=== PATIENT | female | born 1985 | race American Indian/Alaskan Native ===

== ENCOUNTER 2016-12-31 22:58 | Emergency (ER) | payer MEDICARE ==
[2016-12-31 23:58] VITALS: BP 155/107
[2017-01-01 00:26] LABS: Basophils % (Auto) 2.4 % (0.0-1.8); Eosinophils % (Auto) 2.4 % (0.0-4.3); Hematocrit 28.8 % (30.3-42.9); Hemoglobin 9.6 gm/dl (10.1-14.3); Mean Corpuscular HGB Conc 33 % (30-34); Mean Corpuscular Volume 77 fl (79-97); Platelet Count 277 K/mm3 (140-440); Red Blood Count 3.73 M/mm3 (3.65-5.03); Red Cell Distribution Width 15.6 % (13.2-15.2); White Blood Count 5.8 K/mm3 (4.5-11.0)
[2017-01-01 00:36] LABS: Mean Corpuscular Hemoglobin 26 pg (28-32)
[2017-01-01 01:45] LABS: Bilirubin,Urine NEG (Negative); Blood,Urine LG (Negative); Ketones,Urine 80 mg/dL (Negative); Leukocyte Esterase,Urine TR (Negative); Mucus,Urine 3+ /HPF; Nitrite,Urine NEG (Negative); RBC,Urine > 182.0 /HPF (0.0-6.0)
--- NOTE | 2017-01-01 06:58 | ED Elopement Review ---
ED Pt Elopement review - Results review Lab results: Laboratory Tests 12/31/16 01/01/17 01/01/17 Unknown 00:04 00:04 WBC 5.8 RBC 3.73 Hgb 9.6 L Hct 28.8 L MCV 77 L MCH 26 L MCHC 33 RDW 15.6 H Plt Count 277 Lymph % (Auto) 30.7 [place] % (Auto) 6.0 Eos % (Auto) 2.4 Baso % (Auto) 2.4 H Lymph # 1.8 [place] # 0.3 Eos # 0.1 Baso # 0.1 Seg Neutrophils % 58.5 Seg Neutrophils # 3.4 HCG, Quant < 2 Urine Color Shannan Urine Turbidity Clear Urine pH 6.0 Ur Specific [place] 1.027 Urine Protein 100 mg/dl Urine Glucose (UA) Neg Urine Ketones 80 Urine Blood Lg Urine Nitrite Neg Urine Bilirubin Neg Urine Urobilinogen 4.0 Ur Leukocyte Esterase Tr Urine WBC (Auto) 11.0 H Urine RBC (Auto) > 182.0 U Epithel Cells (Auto) 4.0 Urine Mucus 3+ Blood Type Antibody Screen 01/01/17 00:10 WBC RBC Hgb Hct MCV MCH MCHC RDW Plt Count Lymph % (Auto) [place] % (Auto) Eos % (Auto) Baso % (Auto) Lymph # [place] # Eos # Baso # Seg Neutrophils % Seg Neutrophils # HCG, Quant Urine Color Urine Turbidity Urine pH Ur Specific [place] Urine Protein Urine Glucose (UA) Urine Ketones Urine Blood Urine Nitrite Urine Bilirubin Urine Urobilinogen Ur Leukocyte Esterase Urine WBC (Auto) Urine RBC (Auto) U Epithel Cells (Auto) Urine Mucus Blood Type O POSITIVE Antibody Screen Negative - Call Back decision Pt Call Back Decision: No action required
== END 2017-01-01 05:30 | disposition left against medical advice (07) ==
LOC: ED 22:58
DX: R10.2 Pelvic and perineal pain (principal); N93.8 Other specified abnormal uterine and vaginal bleeding; Z53.21 Procedure and treatment not carried out due to patient leaving prior to being seen by health care provider
CPT/HCPCS: 36415; 81001; 84702; 85025; 86850; 86900; 86901

== ENCOUNTER 2017-02-07 08:55 | Outpatient (CLI) | payer MEDICARE ==
[2017-02-07] MEDS ORDERED: NACL ONE (12:06)
--- NOTE | 2017-02-07 13:19 | Cat Scan Report ---
CT scan of abdomen and pelvis with IV contrast: History: Abdominal pain, ovarian cyst. Findings: Normal lung bases. No pleural or pericardial effusion. Normal liver spleen and pancreas. Tiny calculi in the gallbladder. No pericholecystic fluid. Normal adrenals. Exophytic 5 mm cyst left kidney. No calculi. No hydronephrosis. Normal bladder. There is a left adnexal cyst noted measuring 3 x 2 cm. No free intraperitoneal fluid or air. No evidence of adenopathy. Gaseous colon with moderate amount of stool in colon. No bowel distention. Normal appendix. No evidence of diverticulitis. Small umbilical hernia containing mesenteric fat. Impression: Left adnexal cyst which appears to be benign.
== END 2017-02-07 08:56 | disposition home or self-care (01) ==
LOC: CT 08:55
PROVIDERS: ATTEND Obstetrics & Gynecology
DX: N83.202 Unspecified ovarian cyst, left side (principal); K80.20 Calculus of gallbladder without cholecystitis without obstruction; N28.1 Cyst of kidney, acquired; K42.9 Umbilical hernia without obstruction or gangrene
CPT/HCPCS: 74177; Q9967

== ENCOUNTER 2018-04-02 07:53 | Outpatient (CLI) | payer MEDICARE ==
--- NOTE | 2018-04-02 09:23 | Ultrasound Report ---
ULTRASOUND PELVIC COMPLETE ULTRASOUND TRANSVAGINAL HISTORY: Dysfunctional uterine bleeding. COMPARISON: CT abdomen pelvis with contrast dated 02/07/17. TECHNIQUE: Transabdominal and transvaginal ultrasound with color doppler interrogation. FINDINGS: Uterus: The uterus is anteverted and measures 9 x 4 x 5 cm. No uterine mass is identified. Normal cervix. Endometrium: 5 mm. No abnormality appreciated. Right ovary: Normal. Left ovary: Normal. Left ovarian cyst seen on the previous CT has resolved. No pelvic fluid or mass is identified. Normal color doppler interrogation. IMPRESSION: Unremarkable transabdominal and transvaginal pelvic ultrasounds.
== END 2018-04-02 07:54 | disposition home or self-care (01) ==
LOC: US 07:53
PROVIDERS: ATTEND Obstetrics & Gynecology
DX: N93.8 Other specified abnormal uterine and vaginal bleeding (principal); N85.4 Malposition of uterus; E66.9 Obesity, unspecified; G47.30 Sleep apnea, unspecified; K21.9 Gastro-esophageal reflux disease without esophagitis; Z87.891 Personal history of nicotine dependence
CPT/HCPCS: 76830; 76856

== ENCOUNTER 2018-07-31 09:09 | Outpatient (CLI) | payer MEDICARE ==
--- NOTE | 2018-07-31 13:21 | Ultrasound Report ---
ULTRASOUND PELVIC COMPLETE ULTRASOUND TRANSVAGINAL HISTORY: Dysfunctional uterine bleeding. COMPARISON: 04/02/18. TECHNIQUE: Transabdominal and transvaginal ultrasound with color doppler interrogation. FINDINGS: Uterus: The uterus is anteverted. The uterus measures 9.5 x 5.2 x 5.5 cm. No uterine fibroid. Normal cervix. Endometrium: Within normal limits measuring 7 mm in thickness. Right ovary: 3.5 x 3.5 x 2.3 cm. No focal abnormality. Left ovary: 2.9 x 1.9 x 2.8 cm. No focal abnormality. No pelvic fluid or mass is identified. Normal color doppler interrogation. IMPRESSION: Unremarkable transabdominal and transvaginal pelvic ultrasounds. No change since 04/02/18 exam.
== END 2018-07-31 09:10 | disposition home or self-care (01) ==
LOC: US 09:09
PROVIDERS: ATTEND Obstetrics & Gynecology
DX: N93.8 Other specified abnormal uterine and vaginal bleeding (principal); K21.9 Gastro-esophageal reflux disease without esophagitis; E66.01 Morbid (severe) obesity due to excess calories; Z68.43 Body mass index [BMI] 50.0-59.9, adult; Z90.89 Acquired absence of other organs
CPT/HCPCS: 76830; 76856

== ENCOUNTER 2020-08-22 11:28 | Outpatient (CLI) | payer OTHER ==
--- NOTE | 2020-08-22 13:45 | XRay Report ---
SACRUM AND COCCYX 2 VIEWS INDICATION / CLINICAL INFORMATION: BACK PAIN,TAILBONE PAIN,REYNARD DISEASE, SHINGLES. COMPARISON: None available. FINDINGS: No significant skeletal abnormality Signer Name: Roberto Goode MD FACR Signed: 08/22/2020 1:40 PM Workstation Name: [id number]
== END 2020-08-22 11:29 | disposition home or self-care (01) ==
LOC: XRAY 11:28
PROVIDERS: ATTEND Internal Medicine
DX: M54.5 Low back pain (principal); B02.9 Zoster without complications; M85.80 Other specified disorders of bone density and structure, unspecified site
CPT/HCPCS: 72220

== ENCOUNTER 2021-11-13 04:00 | Emergency (ER) | payer MEDICARE ==
[2021-11-13 04:19] VITALS: BP 149/95
[2021-11-13] MEDS ORDERED: FAMOTIDINE 20 MG/2 ML INJ IV ONE (05:01)
[2021-11-13] MEDS ORDERED: ONDANSETRON 4 MG/2 ML INJ IV ONE (05:01)
[2021-11-13] MEDS ORDERED: MORPHINE 4 MG/1 ML INJ IV ONE (05:01)
[2021-11-13 05:27] LABS: Basophils % (Auto) 0.6 % (0.0-1.8); Lymphocytes # (Auto) 1.4 K/mm3 (1.2-5.4); Mean Corpuscular HGB Conc 28 % (30-34); Monocytes # (Auto) 0.2 K/mm3 (0.0-0.8); Monocytes % (Auto) 3.8 % (0.0-7.3); Platelet Count 310 K/mm3 (140-440); Red Blood Count 5.26 M/mm3 (3.65-5.03)
[2021-11-13 05:28] LABS: Hematocrit 32.7 % (30.3-42.9); Hemoglobin 9.1 gm/dl (10.1-14.3); Mean Corpuscular Volume 62 fl (79-97); Red Cell Distribution Width 20.4 % (13.2-15.2)
[2021-11-13 05:47] LABS: Alanine Aminotransferase 12 units/L (7-56); Albumin 4.4 g/dL (3.9-5); Blood Urea Nitrogen 6 mg/dL (7-17); Calcium 9.2 mg/dL (8.4-10.2); Hemolysis Index 9
--- NOTE | 2021-11-13 05:49 | Emergency Department Report ---
<PJ BERGSameer Garett - Last Filed: 11/13/21 14:09> ED Abdominal Pain HPI - General Chief Complaint: Abdominal Pain Stated Complaint: ABD PAIN - Related Data Home Medications Medication Instructions Recorded Confirmed Last Taken Duloxetine HCl [DULoxetine] 30 mg PO DAILY 10/05/18 10/07/18 10/06/18 Previous Rx's Medication Instructions Recorded Last Taken Type HYDROcodone/APAP 5-325 [Miranda 1 each PO Q6HR PRN #7 tablet 10/19/16 10/06/18 Rx 5/325] oxyCODONE /ACETAMINOPHEN [Percocet 1 tab PO Q6HR PRN #30 tablet 10/07/18 Unknown Rx 5/325] traMADoL [Ultram 50 MG tab] 50 mg PO Q6HR PRN #12 tablet 11/13/21 Unknown Rx Allergies Allergy/AdvReac Type Severity Reaction Status Date / Time NSAIDS (Non-Steroidal Allergy Hives Verified 11/13/21 04:19 Anti-Inflamma Penicillins Allergy Hives Verified 11/13/21 04:19 PEROXIDE Allergy TURNS BEIGE Uncoded 10/05/18 17:27 ED Past Medical Hx - Medications Home Medications: Home Medications Medication Instructions Recorded Confirmed Last Taken Type HYDROcodone/APAP 5-325 [Miranda 1 each PO Q6HR PRN #7 tablet 10/19/16 10/07/18 10/06/18 Rx 5/325] Duloxetine HCl [DULoxetine] 30 mg PO DAILY 10/05/18 10/07/18 10/06/18 History oxyCODONE /ACETAMINOPHEN [Percocet 1 tab PO Q6HR PRN #30 tablet 10/07/18 Unknown Rx 5/325] traMADoL [Ultram 50 MG tab] 50 mg PO Q6HR PRN #12 tablet 11/13/21 Unknown Rx ED Medical Decision Making - Lab Data Result diagrams: 11/13/21 05:13 11/13/21 05:13 Lab Results 11/13/21 11/13/21 11/13/21 Range/Units 05:13 05:13 05:13 WBC 4.8 (4.5-11.0) K/mm3 RBC 5.26 H (3.65-5.03) M/mm3 Hgb 9.1 L (10.1-14.3) gm/dl Hct 32.7 (30.3-42.9) % MCV 62 L (79-97) fl MCH 17 L (28-32) pg MCHC 28 L (30-34) % RDW 20.4 H (13.2-15.2) % Plt Count 310 (140-440) K/mm3 Lymph % (Auto) 29.0 (13.4-35.0) % [place] % (Auto) 3.8 (0.0-7.3) % Eos % (Auto) 1.0 (0.0-4.3) % Baso % (Auto) 0.6 (0.0-1.8) % Lymph # (Auto) 1.4 (1.2-5.4) K/mm3 [place] # (Auto) 0.2 (0.0-0.8) K/mm3 Eos # (Auto) 0.0 (0.0-0.4) K/mm3 Baso # (Auto) 0.0 (0.0-0.1) K/mm3 Seg Neutrophils % 65.6 (40.0-70.0) % Seg Neutrophils # 3.1 (1.8-7.7) K/mm3 Sodium 140 (137-145) mmol/L Potassium 3.7 (3.6-5.0) mmol/L Chloride 103.2 (98-107) mmol/L Carbon Dioxide 18 L (22-30) mmol/L Anion Gap 23 mmol/L BUN 6 L (7-17) mg/dL Creatinine 0.7 (0.6-1.2) mg/dL Estimated GFR > 60 ml/min BUN/Creatinine Ratio 9 % Glucose 84 (65-100) mg/dL Calcium 9.2 (8.4-10.2) mg/dL Total Bilirubin 0.40 (0.1-1.2) mg/dL AST 22 (5-40) units/L ALT 12 (7-56) units/L Alkaline Phosphatase 73 (35-129) units/L Total Protein 8.7 H (6.3-8.2) g/dL Albumin 4.4 (3.9-5) g/dL Albumin/Globulin Ratio 1.0 % Lipase 18 (13-60) units/L HCG, Qual Negative (Negative) Urine Color (Yellow) Urine Turbidity (Clear) Urine pH (5.0-7.0) Ur Specific [place] (1.003-1.030) Urine Protein (Negative) mg/dL Urine Glucose (UA) (Negative) mg/dL Urine Ketones (Negative) mg/dL Urine Blood (Negative) Urine Nitrite (Negative) Urine Bilirubin (Negative) Urine Urobilinogen (<2.0) mg/dL Ur Leukocyte Esterase (Negative) Urine WBC (Auto) (0.0-6.0) /HPF Urine RBC (Auto) (0.0-6.0) /HPF U Epithel Cells (Auto) (0-13.0) /HPF Urine Mucus /HPF 11/13/21 Range/Units 05:50 WBC (4.5-11.0) K/mm3 RBC (3.65-5.03) M/mm3 Hgb (10.1-14.3) gm/dl Hct (30.3-42.9) % MCV (79-97) fl MCH (28-32) pg MCHC (30-34) % RDW (13.2-15.2) % Plt Count (140-440) K/mm3 Lymph % (Auto) (13.4-35.0) % [place] % (Auto) (0.0-7.3) % Eos % (Auto) (0.0-4.3) % Baso % (Auto) (0.0-1.8) % Lymph # (Auto) (1.2-5.4) K/mm3 [place] # (Auto) (0.0-0.8) K/mm3 Eos # (Auto) (0.0-0.4) K/mm3 Baso # (Auto) (0.0-0.1) K/mm3 Seg Neutrophils % (40.0-70.0) % Seg Neutrophils # (1.8-7.7) K/mm3 Sodium (137-145) mmol/L Potassium (3.6-5.0) mmol/L Chloride (98-107) mmol/L Carbon Dioxide (22-30) mmol/L Anion Gap mmol/L BUN (7-17) mg/dL Creatinine (0.6-1.2) mg/dL Estimated GFR ml/min BUN/Creatinine Ratio % Glucose (65-100) mg/dL Calcium (8.4-10.2) mg/dL Total Bilirubin (0.1-1.2) mg/dL AST (5-40) units/L ALT (7-56) units/L Alkaline Phosphatase (35-129) units/L Total Protein (6.3-8.2) g/dL Albumin (3.9-5) g/dL Albumin/Globulin Ratio % Lipase (13-60) units/L HCG, Qual (Negative) Urine Color Yellow (Yellow) Urine Turbidity Clear (Clear) Urine pH 7.0 (5.0-7.0) Ur Specific [place] 1.010 (1.003-1.030) Urine Protein <15 mg/dl (Negative) mg/dL Urine Glucose (UA) Neg (Negative) mg/dL Urine Ketones Neg (Negative) mg/dL Urine Blood Neg (Negative) Urine Nitrite Neg (Negative) Urine Bilirubin Neg (Negative) Urine Urobilinogen 2.0 (<2.0) mg/dL Ur Leukocyte Esterase Neg (Negative) Urine WBC (Auto) < 1.0 (0.0-6.0) /HPF Urine RBC (Auto) 1.0 (0.0-6.0) /HPF U Epithel Cells (Auto) 1.0 (0-13.0) /HPF Urine Mucus Few /HPF - Radiology Data [facility] [address] [place] [address] Cat Scan Report Signed Patient: MELVIN BIRMINGHAM MR#: [id number] : 1985 Acct:[id number] Age/Sex: 36 / F ADM Date: 11/13/21 Loc: ED Attending Dr: Ordering Physician: JOSEFINA WELCH Date of Service: 11/13/21 Procedure(s): CT abdomen pelvis w con Accession Number(s): [id number] cc: JOSEFINA WELCH CT abdomen pelvis w con INDICATION / CLINICAL INFORMATION: Pt complains of L.L.Q. abdominal pain. TECHNIQUE: Axial CT imaging of abdomen and pelvis was obtained with 100 cc Omnipaque 300 IV contrast. Coronal and sagittal reformatted imaging obtained and reviewed. All CT scans at this location are performed using CT dose reduction for ALARA by means of automated exposure control. COMPARISON: Prior CT abdomen/pelvis 09/01/2015 FINDINGS: CT abdomen with IV contrast demonstrates grossly normal appearance of the liver, spleen, pancreas, kidneys, and adrenal glands. A few small gallstones are seen within the gallbladder. The gallbladder does not appear to be acutely inflamed, however. No biliary dilatation noted. CT pelvis with contrast demonstrates normal appearance of the appendix. There are 2 dominant cysts in the left ovary. The largest cyst is 3.6 cm. The second cyst is 2.1 cm. Small amount of free fluid is present in the left adnexa and the posterior cul-de-sac. Uterus is mildly enlarged. Right adnexa is normal. GI tract is unremarkable. Visualized lung bases are clear. No acute osseous abnormality. IMPRESSION: 1. There are 2 dominant cysts within the left ovary, the largest of which measures 3.6 cm. There is small amount of free fluid in the left adnexa and posterior cul-de-sac. 2. Cholelithiasis without CT evidence of acute cholecystitis.. Signer Name: Yi Powers MD Signed: 11/13/2021 6:57 AM Workstation Name: [id number] Transcribed By: JR Dictated By: Yi Powers MD Electronically Authenticated By: Yi Powers MD Signed Date/Time: 11/13/21656 DD/ TD/TT: ED Disposition Clinical Impression: Acute abdominal pain in left lower quadrant, Ovarian cyst, left, Cholelithiasis without cholecystitis Disposition: 01 HOME / SELF CARE / HOMELESS Is pt being admited?: No Does the pt Need Aspirin: No Condition: Stable Instructions: Cholelithiasis, [id number], Ovarian Cyst, [id number], Abdominal Pain (ED) Additional Instructions: Your labs are stable. CT scan shows that you have cholelithiasis which is gallstones without infection. It also shows you have to left ovarian cyst. These can be followed up outpatient [place] at your [facility] general surgeon. I have listed their information below for your convenience. Increase your fluid intake. Tylenol for pain management. Prescriptions: traMADoL [Ultram 50 MG tab] 50 mg PO Q6HR PRN #12 tablet PRN Reason: Pain Referrals: PRIMARY CARE, [Primary Care Provider] - 3-5 Days [facility] [Provider Group] - 3-5 Days DANTE GOMEZ DO [Staff Physician] - 3-5 Days Print Language: [place] <OSEDO,YOLANDA - Last Filed: 11/13/21 20:32> ED Abdominal Pain HPI - General Source: patient Mode of arrival: Ambulatory Limitations: No Limitations - History of Present Illness Initial Comments: Patient is a 36-year-old -T[place] female with a history of chronic osteoarthritis, anxiety and depression who presented to the ED with complaint of acute onset persistent left lower quadrant abdominal pain with nausea for the last 2 days. Patient states that the pain especially got worse in the last 12 hours. Patient denies vomiting, diarrhea, dysuria, urinary frequency and urgency, vaginal bleeding, vaginal discharge, low back pain, chest pain, shortness of breath, cough, sore throat, palpitations, change in vision, lightheadedness, dizziness or syncope. MD Complaint: abdominal pain (Patient is a 36-year-old -[place] female who) -: Sudden, days(s) (2) Location: LLQ Radiation: LLQ, suprapubic Migration to: no migration Severity: severe Severity scale (0 -10): 7 Quality: aching, sharp Consistency: constant Improves With: nothing Worsens With: movement Associated Symptoms: denies other symptoms, nausea. denies: vomiting, diarrhea, fever, chills, dysuria, hematemesis, hematochezia, melena, hematuria, syncope, other ED Review of Systems ROS: Stated complaint: ABD PAIN Other details as noted in HPI Constitutional: denies: chills, fever Eyes: denies: eye pain, eye discharge, vision change ENT: denies: ear pain, throat pain Respiratory: denies: cough, shortness of breath, wheezing Cardiovascular: denies: chest pain, palpitations Endocrine: no symptoms reported Gastrointestinal: abdominal pain (Left lower quadrant abdominal pain), nausea. denies: vomiting, diarrhea, constipation, hematemesis Genitourinary: denies: urgency, dysuria, discharge Musculoskeletal: denies: back pain, joint swelling, arthralgia Skin: denies: rash, lesions Neurological: denies: headache, weakness, paresthesias Psychiatric: denies: anxiety, depression Hematological/Lymphatic: denies: easy bleeding, easy bruising ED Past Medical Hx - Past Medical History Hx Congestive Heart Failure: No Hx Diabetes: No Hx Arthritis: Yes Hx Psychiatric Treatment: Yes (depression) Hx Asthma: No Hx COPD: No Additional medical history: Chronic recurrent abdominal pain. Hernia - Surgical History Additional Surgical History: Several abd surgeries for hernias, x1, tonsillectomy, gastric sleeve - Social History Smoking Status: Never Smoker ED Physical Exam - General Limitations: No Limitations General appearance: alert, in no apparent distress - Head Head exam: Present: atraumatic, normocephalic, normal inspection - Eye Eye exam: Present: normal appearance, PERRL, EOMI Pupils: Present: normal accommodation - ENT ENT exam: Present: normal orophraynx, mucous membranes moist, TM's normal bilaterally, normal external ear exam - Neck Neck exam: Present: normal inspection, full ROM. Absent: tenderness - Respiratory Respiratory exam: Present: normal lung sounds bilaterally. Absent: respiratory distress, wheezes, rales, stridor, chest wall tenderness, accessory muscle use, decreased breath sounds - Cardiovascular Cardiovascular Exam: Present: regular rate, normal rhythm, normal heart sounds. Absent: systolic murmur, diastolic murmur, rubs, gallop - GI/Abdominal GI/Abdominal exam: Present: soft, tenderness (Palpable left lower quadrant tenderness), normal bowel sounds. Absent: distended, rebound, hyperactive bowel sounds, hypoactive bowel sounds, organomegaly, mass - Extremities Exam Extremities exam: Present: normal inspection, full ROM, normal capillary refill - Back Exam Back exam: Present: normal inspection, full ROM. Absent: tenderness, CVA tenderness (R), CVA tenderness (L), muscle spasm, paraspinal tenderness, vertebral tenderness - Neurological Exam Neurological exam: Present: alert, oriented X3, CN II-XII intact, normal gait, reflexes normal - Psychiatric Psychiatric exam: Present: normal affect, normal mood - Skin Skin exam: Present: warm, dry, intact, normal color. Absent: rash ED Course Vital Signs 11/13/21 04:18 Temperature 98.6 F Pulse Rate 87 Respiratory 17 Rate Blood Pressure 149/95 O2 Sat by Pulse 100 Oximetry ED Medical Decision Making - Lab Data Result diagrams: 11/13/21 05:13 11/13/21 05:13 - Radiology Data Radiology results: report reviewed, image reviewed - Medical Decision Making This is a 36-year-old -[place] female with a history of chronic osteoarthritis, anxiety and depression who presented to the ED with complaint of acute onset persistent left lower quadrant abdominal pain with nausea for the last 2 days. Patient states that the pain especially got worse in the last 12 hours. In the ED, patient is alert and oriented x3 and is not in distress. Patient was treated for pain in the ED and labs were drawn. The abdomen pelvis CT scan with contrast was ordered. Patient was also treated for pain and nausea. Patient care was transferred to Ms. Nestor DE LEON at shift change. She shall review all the lab test results and imaging reports and disposition the patient accordingly. - Differential Diagnosis Colitis; diverticulitis; kidney stone; ovarian cyst; UTI; Critical care attestation.: If time is entered above; I have spent that time in minutes in the direct care of this critically ill patient, excluding procedure time. ED Disposition Time of Disposition: 06:25
[2021-11-13 05:50] LABS: BUN/Creatinine Ratio 9
[2021-11-13 06:01] LABS: Bilirubin,Urine NEG (Negative); Blood,Urine NEG (Negative); Color,Urine Yellow (Yellow); Mucus,Urine FEW /HPF; Protein,Urine <15 mg/dL mg/dL (Negative); WBC,Urine < 1.0 /HPF (0.0-6.0)
--- NOTE | 2021-11-13 07:01 | Cat Scan Report ---
CT abdomen pelvis w con INDICATION / CLINICAL INFORMATION: Pt complains of L.L.Q. abdominal pain. TECHNIQUE: Axial CT imaging of abdomen and pelvis was obtained with 100 cc Omnipaque 300 IV contrast. Coronal an d sagittal reformatted imaging obtained and reviewed. All CT scans at this location are performed us ing CT dose reduction for ALARA by means of automated exposure control. COMPARISON: Prior CT abdomen/pelvis 09/01/2015 FINDINGS: CT abdomen with IV contrast demonstrates grossly normal appearance of the liver, spleen, pancreas, ki dneys, and adrenal glands. A few small gallstones are seen within the gallbladder. The gallbladder do es not appear to be acutely inflamed, however. No biliary dilatation noted. CT pelvis with contrast demonstrates normal appearance of the appendix. There are 2 dominant cysts in the left ovary. The largest cyst is 3.6 cm. The second cyst is 2.1 cm. Small amount of free fluid is present in the left adnexa and the posterior cul-de-sac. Uterus is mildly enlarged. Right adnexa is normal. GI tract is unremarkable. Visualized lung bases are clear. No acute osseous abnormality. IMPRESSION: 1. There are 2 dominant cysts within the left ovary, the largest of which measures 3.6 cm. There is s mall amount of free fluid in the left adnexa and posterior cul-de-sac. 2. Cholelithiasis without CT evidence of acute cholecystitis.. Signer Name: Yi Powers MD Signed: 11/13/2021 6:57 AM Workstation Name: [id number]
--- NOTE | 2021-11-13 12:20 | Electrocardiograph Report ---
[facility] Test Date: 2021-11-13 Test Time: 04:32:34 Pat Name: MELVIN BIRMINGHAM Department: Room: Gender: F [employer]: NURSE : 1985 Requested By: JEROD JACOBS Order Number: [id number] Reading MD: Jesse Hernandez Measurements Intervals [place] Rate: 86 P: 64 RI: 165 QRS: 50 QRSD: 73 T: 59 QT: 362 QTc: 434 Interpretive Statements Sinus rhythm Probable left atrial enlargement Anteroseptal infarct, age indeterminate No previous ECG available for comparison Electronically Signed On 11-13-2021 12:19:59 EST by Jesse Hernandez
== END 2021-11-13 18:44 | disposition home or self-care (01) ==
LOC: ED 04:00
DX: R10.32 Left lower quadrant pain (principal); N83.202 Unspecified ovarian cyst, left side; K80.20 Calculus of gallbladder without cholecystitis without obstruction; M19.90 Unspecified osteoarthritis, unspecified site; Z98.890 Other specified postprocedural states; Z88.0 Allergy status to penicillin; Z88.8 Allergy status to other drugs, medicaments and biological substances
CPT/HCPCS: 36415; 74177; 80053; 81001; 83690; 84703; 85025; 93005; 96374; 96375; 99284; J2270; J2405; J3490; Q9967

== ENCOUNTER 2022-05-04 01:08 | Emergency (ER) | payer MEDICAID ==
[2022-05-04 01:47] LABS: Bilirubin,Urine NEG (Negative); Blood,Urine NEG (Negative); Color,Urine Yellow (Yellow); Mucus,Urine FEW /HPF; Protein,Urine <15 mg/dL mg/dL (Negative); RBC,Urine < 1.0 /HPF (0.0-6.0); Urobilinogen,Urine < 2.0 mg/dL (<2.0)
[2022-05-04 01:51] LABS: HCG Qualitative,Urine Negative (Negative)
[2022-05-04 02:01] LABS: Basophils % (Auto) 0.8 % (0.0-1.8); Eosinophils # (Auto) 0.1 K/mm3 (0.0-0.4); Eosinophils % (Auto) 1.1 % (0.0-4.3); Hemoglobin 7.6 gm/dl (10.1-14.3); Lymphocytes # (Auto) 0.5 K/mm3 (1.2-5.4); Lymphocytes % (Auto) 9.3 % (13.4-35.0); Mean Corpuscular HGB Conc 30 % (30-34); Monocytes # (Auto) 0.5 K/mm3 (0.0-0.8); Monocytes % (Auto) 9.6 % (0.0-7.3); Platelet Count 322 K/mm3 (140-440); Red Blood Count 4.06 M/mm3 (3.65-5.03); Red Cell Distribution Width 19.7 % (13.2-15.2)
[2022-05-04 02:08] LABS: Mean Corpuscular Volume 62 fl (79-97)
--- NOTE | 2022-05-04 02:19 | XRay Report ---
CHEST 2 VIEWS INDICATION / CLINICAL INFORMATION: chest pain. COMPARISON: None available. FINDINGS: SUPPORT DEVICES: None. HEART / MEDIASTINUM: No significant abnormality. LUNGS / PLEURA: No significant pulmonary or pleural abnormality. No pneumothorax. ADDITIONAL FINDINGS: No significant additional findings. IMPRESSION: 1. No acute findings. Signer Name: Samir Marquez DO Signed: 05/04/2022 2:15 AM Workstation Name: [id number]
[2022-05-04 02:25] LABS: Alanine Aminotransferase 23 units/L (7-56); Blood Urea Nitrogen 6 mg/dL (7-17); Calcium 9.1 mg/dL (8.4-10.2); Hemolysis Index 1
[2022-05-04 02:31] LABS: BUN/Creatinine Ratio 9
[2022-05-04 02:48] VITALS: BP 162/95
[2022-05-04] MEDS ORDERED: ONDANSETRON 4 MG/2 ML INJ IV ONE (03:42)
[2022-05-04] MEDS ORDERED: SODIUM CHLORIDE 0.9% 1000 ML 1,000 ML IV ONE (03:42)
--- NOTE | 2022-05-04 05:49 | Cat Scan Report ---
"Negative CT ABDOMEN AND PELVIS WITHOUT CONTRAST INDICATION / CLINICAL INFORMATION: pain. TECHNIQUE: Axial CT images were obtained through the abdomen and pelvis without IV contrast. All CT scans at this location are performed using CT dose reduction for ALARA by means of automated exposure control. COMPARISON: 11/13/2021 FINDINGS: LOWER CHEST: No significant abnormality. AORTA / ARTERIES: No significant abnormality. IVC / VEINS: No significant abnormality. LYMPH NODES: No significant adenopathy. COLON: No significant abnormality. APPENDIX: No significant abnormality. STOMACH / SMALL BOWEL: Post surgical change to the stomach. Otherwise no significant abnormality invo lving stomach or small bowel. PERITONEUM: No free fluid. No free air. No fluid collection. LIVER: No significant abnormality. GALLBLADDER: Uncomplicated cholelithiasis. BILE DUCTS: No significant abnormality. PANCREAS: No significant abnormality. SPLEEN: No significant abnormality. ADRENALS: No significant abnormality. RIGHT KIDNEY / URETER: No significant abnormality. LEFT KIDNEY / URETER: No significant abnormality. URINARY BLADDER: No significant abnormality. REPRODUCTIVE ORGANS: No significant abnormality. SKELETAL SYSTEM: No significant abnormality. ADDITIONAL FINDINGS: None. IMPRESSION: 1. No acute intra-abdominal or intrapelvic pathology. Signer Name: Samir Marquez DO Signed: 05/04/2022 5:45 AM Workstation Name: [id number]"
--- NOTE | 2022-05-04 06:00 | Emergency Department Report ---
ED General Adult HPI - General Chief complaint: Weakness Stated complaint: NAUSEA/PAIN Time Seen by Provider: 05/04/22 03:39 Source: patient Mode of arrival: Ambulatory Limitations: No Limitations - History of Present Illness Initial comments: Pt reports N/V, weakness, left side chest tightness, and lower abd tightness onset yesterday. LMP 04/27/22. Pt is aaÓSCAR cottonN. repeated visits for the same -: Gradual, days(s) Location: abdomen Radiation: non-radiation Severity scale (0 -10): 8 Consistency: constant Improves with: none Worsens with: none Associated Symptoms: denies: denies other symptoms, confusion, chest pain - Related Data Home Medications Medication Instructions Recorded Confirmed Last Taken Duloxetine HCl [DULoxetine] 30 mg PO DAILY 10/05/18 10/07/18 10/06/18 Previous Rx's Medication Instructions Recorded Last Taken Type HYDROcodone/APAP 5-325 [[place]ent[place] 1 each PO Q6HR PRN #7 tablet 10/19/16 10/06/18 Rx 5/325] oxyCODONE /ACETAMINOPHEN [Percocet 1 tab PO Q6HR PRN #30 tablet 10/07/18 Unknown Rx 5/325] traMADoL [Ultram 50 MG tab] 50 mg PO Q6HR PRN #12 tablet 11/13/21 Unknown Rx Allergies Allergy/AdvReac Type Severity Reaction Status Date / Time NSAIDS (Non-Steroidal Allergy Hives Verified 11/13/21 04:19 Anti-Inflamma Penicillins Allergy Hives Verified 11/13/21 04:19 PEROXIDE Allergy TURNS BEIGE Uncoded 10/05/18 17:27 ED Review of Systems ROS: Stated complaint: NAUSEA/PAIN Other details as noted in HPI Constitutional: denies: chills, fever Eyes: denies: eye pain, eye discharge, vision change ENT: denies: ear pain, throat pain Respiratory: denies: cough, shortness of breath, wheezing Cardiovascular: denies: chest pain, palpitations Endocrine: no symptoms reported Gastrointestinal: denies: abdominal pain, nausea, diarrhea Genitourinary: denies: urgency, dysuria, discharge Musculoskeletal: denies: back pain, joint swelling, arthralgia Skin: denies: rash, lesions Neurological: denies: headache, weakness, paresthesias Psychiatric: denies: anxiety, depression Hematological/Lymphatic: denies: easy bleeding, easy bruising ED Past Medical Hx - Past Medical History Previous Medical History?: Yes Hx Congestive Heart Failure: No Hx Diabetes: No Hx Arthritis: Yes Hx Psychiatric Treatment: Yes (depression) Hx Asthma: No Hx COPD: No Additional medical history: Chronic recurrent abdominal pain. Hernia - Surgical History Past Surgical History?: Yes Additional Surgical History: Several abd surgeries for hernias, x1, tonsillectomy, gastric sleeve - Social History Smoking Status: Former Smoker Substance Use Type: None - Medications Home Medications: Home Medications Medication Instructions Recorded Confirmed Last Taken Type HYDROcodone/APAP 5-325 [[place] 1 each PO Q6HR PRN #7 tablet 10/19/16 10/07/18 10/06/18 Rx 5/325] Duloxetine HCl [DULoxetine] 30 mg PO DAILY 10/05/18 10/07/18 10/06/18 History oxyCODONE /ACETAMINOPHEN [Percocet 1 tab PO Q6HR PRN #30 tablet 10/07/18 Unknown Rx 5/325] traMADoL [Ultram 50 MG tab] 50 mg PO Q6HR PRN #12 tablet 11/13/21 Unknown Rx ED Physical Exam - General Limitations: No Limitations General appearance: alert, in no apparent distress - Head Head exam: Present: atraumatic, normocephalic - Eye Eye exam: Present: normal appearance - ENT ENT exam: Present: mucous membranes moist - Neck Neck exam: Present: normal inspection - Respiratory Respiratory exam: Present: normal lung sounds bilaterally. Absent: respiratory distress - Cardiovascular Cardiovascular Exam: Present: regular rate, normal rhythm. Absent: systolic murmur, diastolic murmur, rubs, gallop - GI/Abdominal GI/Abdominal exam: Present: tenderness, normal bowel sounds - Extremities Exam Extremities exam: Present: normal inspection - Back Exam Back exam: Present: normal inspection - Neurological Exam Neurological exam: Present: alert, oriented X3 - Psychiatric Psychiatric exam: Present: normal affect, normal mood - Skin Skin exam: Present: warm, dry, intact, normal color. Absent: rash ED Course Vital Signs 05/04/22 05/04/22 01:12 02:46 Temperature 100.5 F H Pulse Rate 105 H 88 Respiratory 20 18 Rate Blood Pressure 147/95 Blood Pressure 162/95 [Right] O2 Sat by Pulse 97 100 Oximetry ED Medical Decision Making - Lab Data Result diagrams: 05/04/22 01:32 05/04/22 01:32 - Radiology Data Radiology results: report reviewed, image reviewed - Medical Decision Making work up negative vss , ct showed gall stones, Critical care attestation.: If time is entered above; I have spent that time in minutes in the direct care of this critically ill patient, excluding procedure time. ED Disposition Clinical Impression: GERD (gastroesophageal reflux disease), Gall stones, Chronic abdominal pain Disposition: HOME / SELF CARE / HOMELESS Is pt being admited?: No Does the pt Need Aspirin: No Condition: Stable Instructions: Cholelithiasis, Flank Pain, Adult, [id number] Referrals: GAGAN RIGGS MD [Primary Care Provider] - 3-5 Days
--- NOTE | 2022-05-06 10:35 | Electrocardiograph Report ---
[facility] Test Date: 2022-05-04 Test Time: 01:19:59 Pat Name: MELVIN BIRMINGHAM Department: Room: Gender: F Dialysis Tech: PAIGE : 1985 Requested By: SIRIA CALDERÓN Order Number: [id number] Reading MD: Jesse Hernandez Measurements Intervals [place] Rate: 102 P: 66 [place]: 145 QRS: 39 QRSD: 73 T: 55 QT: 341 QTc: 445 Interpretive Statements Sinus tachycardia Probable left atrial enlargement Low voltage, precordial leads Compared to ECG 11/13/2021 04:32:34 No significant change Electronically Signed On 05-06-2022 10:34:59 EDT by Jesse Hernandez
== END 2022-05-04 07:04 | disposition home or self-care (01) ==
LOC: ED 01:08
DX: K21.9 Gastro-esophageal reflux disease without esophagitis (principal); K80.80 Other cholelithiasis without obstruction; R10.9 Unspecified abdominal pain; Z88.0 Allergy status to penicillin; Z88.8 Allergy status to other drugs, medicaments and biological substances
CPT/HCPCS: 36415; 71046; 74176; 80053; 81001; 81025; 82150; 83690; 84484; 85025; 93005; 96361; 96374; 99284; J2405; J7030; 80320; G0480

== ENCOUNTER 2022-06-27 13:58 | Emergency (ER) | payer MEDICAID, MEDICARE ==
[2022-06-27 14:29] VITALS: BP 135/81
[2022-06-27 15:45] LABS: Hemoglobin 8.7 gm/dl (10.1-14.3); Mean Corpuscular HGB Conc 30 % (30-34); Platelet Count 297 K/mm3 (140-440); Red Blood Count 4.44 M/mm3 (3.65-5.03)
[2022-06-27 16:14] LABS: Alanine Aminotransferase 36 units/L (7-56); Albumin 3.8 g/dL (3.9-5); BUN/Creatinine Ratio 9; Blood Urea Nitrogen 7 mg/dL (7-17); Calcium 8.7 mg/dL (8.4-10.2); Hemolysis Index 6
[2022-06-27 16:57] LABS: Amorphous Crystals,Urine 1+; Bacteria,Urine 2+ /HPF (Negative); Mucus,Urine FEW /HPF
[2022-06-27 17:04] LABS: Mean Corpuscular Volume 65 fl (79-97); Red Cell Distribution Width 21.6 % (13.2-15.2)
[2022-06-27 17:30] LABS: Color,Urine Straw (Yellow)
--- NOTE | 2022-06-28 22:35 | Electrocardiograph Report ---
[facility] Test Date: 2022-06-27 Test Time: 14:33:40 Pat Name: MELVIN BIRMINGHAM Department: Room: Gender: F Allergy Physician: TECH : 1985 Requested By: MARY SOLIMAN Order Number: [id number] Reading MD: Royal Fine Measurements Intervals [place] Rate: 103 P: 69 [place]: 142 QRS: 29 QRSD: 84 T: 39 QT: 349 QTc: 457 Interpretive Statements Sinus tachycardia Probable left atrial enlargement Anteroseptal infarct, age indeterminate Compared to ECG 05/04/2022 01:19:59 no changes Electronically Signed On 06-28-2022 22:35:25 EDT by Royal Fine
== END 2022-06-28 03:00 | disposition left against medical advice (07) ==
LOC: ED 13:58
DX: R11.0 Nausea (principal); Z53.21 Procedure and treatment not carried out due to patient leaving prior to being seen by health care provider
CPT/HCPCS: 36415; 80053; 81001; 84702; 85027; 93005